=== PATIENT | male | born 1970 | race Hispanic/Latino ===

== ENCOUNTER 2020-10-06 18:32 | Emergency (ER) | payer OTHER ==
[~2020-10-06] VITALS: Ht 172.7 cm; Wt 120.2 kg
[2020-10-06] MEDS ORDERED: KETOROLAC TROMETHAMINE 60 MG/2 ML VIAL IM ONE (19:15)
[2020-10-06] MEDS ORDERED: KETOROLAC TROMETHAMINE 60 MG/2 ML VIAL ONE (19:18)
[2020-10-06] MEDS ORDERED: COLCHICINE0.6 M1 PO (19:45)
== END 2020-10-06 20:00 | disposition home or self-care (01) ==
LOC: FSED 19:15
DX: M10.9 Gout, unspecified (principal); F17.210 Nicotine dependence, cigarettes, uncomplicated
CPT/HCPCS: 99282; J1885

== ENCOUNTER 2021-02-08 18:17 | Emergency (ER) | payer OTHER ==
[~2021-02-08] VITALS: Ht 170.2 cm; Wt 122.0 kg
[~2021-02-08 18:17] MED LIST: COLCHICINE0.6 M1 PO
[2021-02-08] MEDS ORDERED: IBUPROFEN 200 MG TAB PO ONE (18:45)
[2021-02-08] MEDS ORDERED: ACETAMINOPHEN 325 MG TAB PO ONE (18:45)
[2021-02-08] MEDS ORDERED: IBUPROFEN 600 MG TAB ONE (19:03)
[2021-02-08] MEDS ORDERED: ACETAMINOPHEN 325 MG TAB ONE (19:03)
[2021-02-08] MEDS ORDERED: KETOROLAC TROMETHAMINE 30 MG/ML VIAL IV ONE (19:45)
[2021-02-08] MEDS ORDERED: ONDANSETRON HCL INJ 2MG/ML 2ML 2 MG/ML VIAL IV ONE (19:45)
[2021-02-08] MEDS ORDERED: PIPERACILLIN/TAZOBACTAM 3.375 GM in SODIUM CHLORIDE 0.9% 50ML 50 ML IV ONE (19:45)
[2021-02-08] MEDS ORDERED: Vancomycin IV 1 GM in SODIUM CHLORIDE 0.9% 250ML 250 ML IV ONE (19:45)
[2021-02-08] MEDS ORDERED: MORPHINE SULFATE INJ 4 MG/ML INJ 1ML IV STA (19:50)
[2021-02-08] MEDS ORDERED: Vancomycin IV 1 GM VIAL ONE (20:01)
[2021-02-08] MEDS ORDERED: SODIUM CHLORIDE 0.9% 250ML 250 ML ONE ×2 (20:02→21:00)
[2021-02-08] MEDS ORDERED: PIPERACILLIN/TAZOBACTAM SOD 2.25 GM VIAL ONE (20:02)
[2021-02-08] MEDS ORDERED: ACETAMINOPHEN/1 EAC1 PO (21:19)
[2021-02-08] MEDS ORDERED: DOXYCYCLINE HY100 MG PO (21:19)
[2021-02-08] MEDS ORDERED: INDOCIN50 MG PO (21:19)
== END 2021-02-08 22:59 | disposition home or self-care (01) ==
LOC: FSED 18:51
DX: M10.9 Gout, unspecified (principal); M25.421 Effusion, right elbow
CPT/HCPCS: 20605; 36415; 73070; 83605; 84550; 87040; 99284; J2270; J2405; J2543; J3370; J7050; U0002

== ENCOUNTER 2022-07-03 19:19 | Emergency (ER) | payer OTHER ==
[~2022-07-03] VITALS: Ht 170.2 cm; Wt 122.0 kg
[~2022-07-03 19:19] MED LIST changes: +ACETAMINOPHEN/1 EAC1 PO; +DOXYCYCLINE HY100 MG PO; +INDOCIN50 MG PO
[2022-07-03] MEDS ORDERED: KETOROLAC TROMETHAMINE 60 MG/2 ML VIAL IM ONE (20:30)
[2022-07-03] MEDS ORDERED: INDOMETHACIN50 MG PO ×2 (22:59→23:04)
[2022-07-03 23:09] VITALS: BP 148/70
== END 2022-07-03 23:11 | disposition home or self-care (01) ==
LOC: ER 19:29
DX: M79.671 Pain in right foot (principal); M10.9 Gout, unspecified; R60.9 Edema, unspecified
CPT/HCPCS: 73630; 99283; J1885